=== PATIENT | female | born 1925 | race Caucasian/White ===

== ENCOUNTER 2016-07-09 16:16 | Observation (INO) ==
--- NOTE | 2016-07-09 16:28 | Emergency Department Note ---
Neuro HPI - General Chief Complaint: Stroke Symptoms Stated Complaint: right facial droop, speech difficulty Time Seen by Provider: 07/09/16 16:22 Mode of arrival: EMS - History of Present Illness HPI Narrative: Patient was last normal neurologically at 2:30. She then developed right-sided weakness and right facial droop and some speech difficulty that has all resolved over about an hour and 20 minutes. She has a history of atrial fibrillation but does not take any medications currently. Currently she appears to be in her normal baseline state. No history of stroke or TIA in the past Onset (ago): hour(s) Timing confirmed by: family member Location: speech, right face, right arm, right leg History of same: No Severity: moderate Quality: weak Improves with: time Worsens with: none Context: gradual onset On Anticoagulants: No Associated symptoms: Reports: denies other symptoms Treatments Prior to Arrival: none - Related Data Home Medications: Home Medications Medication Instructions Recorded Confirmed HYDROcodone/ACETAMINOPHEN [[place] 0.5 tab PO DAILY 07/09/16 07/09/16 Hd 10-325 mg Tablet] Previous Rx's Medication Instructions Recorded temazepam 30 mg capsule 30 mg PO QHS PRN #30 cap 07/03/16 Allergies/Adverse Reactions: Allergies Allergy/AdvReac Type Severity Reaction Status Date / Time No Known Drug Allergies Allergy Verified 05/29/16 10:52 Review of Systems All systems ED: reviewed and negative except as stated. Past Medical History - Past Medical History Medical history: Reports: asthma, COPD, hypertension, osteoporosis, thyroid disease, other (neuralgia. Muscular wasting and disuse atrophy. Insomnia. Herpes zoster.) Surgical history ED: Reports: hip replacement, other (repair of right rotator cuff. Amputation of finger.) - Social History Alcohol use: Reports: None Drug use: Reports: none Physical Exam - General Limitations: no limitations General appearance: alert, in no apparent distress - Head Head exam: atraumatic, normocephalic - Eye Eye exam: Present: normal appearance - ENT ENT exam: normal exam - Neck Neck exam: Present: normal inspection - Chest Chest inspection: Present: normal inspection - Respiratory Respiratory exam: Present: normal lung sounds bilaterally - Cardiovascular Cardiovascular exam: Present: regular rate, normal rhythm, normal heart sounds - Abdominal Exam Abdominal exam: Present: soft. Absent: distention, tenderness - Neurological Exam Neurological exam: Present: alert, oriented X3 - Expanded Neurological Exam Speech: Present: fluid speech Cranial nerves: facial sensation (V): Normal, facial palsy (VII): Normal Motor strength - LUE: 5/5 Motor strength - RUE: 5/5 Motor strength - LLE: 5/5 Motor strength - RLE: 5/5 - Psychiatric Psychiatric exam: Present: normal affect, normal mood - Skin Skin exam: Present: warm, dry, intact, normal color Course Vital Signs Temperature 97.8 F 07/09/16 16:17 Pulse Rate 76 07/09/16 16:17 Respiratory Rate 24 07/09/16 16:17 Blood Pressure 163/90 07/09/16 16:17 Pulse Oximetry (%) 100 07/09/16 16:17 Temperature 97.8 F 07/09/16 16:17 Pulse Rate 53 L 07/09/16 17:30 Respiratory Rate 14 07/09/16 17:30 Blood Pressure 163/90 07/09/16 16:17 Pulse Oximetry (%) 97 07/09/16 17:30 Neuro Symptoms/Deficit - MDM Narrative Medical decision making narrative: Patient's symptoms resolved after an hour and 20 minutes. She remained normal throughout the rest of her ER stay - Lab Data Lab results reviewed: Yes I reviewed the patient's lab results. Result diagrams: 07/09/16 16:30 07/09/16 16:30 Lab Results 07/09/16 07/09/16 07/09/16 Range/Units 16:30 16:30 16:30 WBC 5.5 (4.5-11.0) K/mcL RBC 4.56 (4.00-5.20) M/mcL Hgb 14.4 (12.0-15.0) g/dL Hct 43.4 (36.0-48.0) % POC Hct (36.0-48.0) % MCV 95.2 (80.0-100.0) fL MCH 31.7 (26.0-34.0) pg MCHC 33.3 (31.0-36.0) g/dL RDW 13.9 (11.5-14.5) % Plt Count 266 (140-440) K/mcL MPV 8.4 (7.4-10.4) fL Gran % 55.2 (38.0-78.0) % Lymph % (Auto) 32.5 (15.5-49.0) % [place] % (Auto) 10.1 (1.0-12.0) % Eos % (Auto) 1.7 (0.0-7.0) % Baso % (Auto) 0.5 (0.0-2.0) % Gran # 3.1 (1.8-8.0) K/mcL Lymph # 1.8 (1.5-4.8) K/mcL [place] # 0.6 (0.1-0.9) K/mcL Eos # 0.1 (0.0-0.7) K/mcL Baso # 0 (0.0-0.3) K/mcL POC PT 12.3 (11.9-14.5) sec PT 13.3 (11.9-14.5) sec POC INR 1.0 (0.9-1.2) INR 1.0 (0.9-1.1) APTT 31 (20-37) sec POC Sodium (133-145) mmol/L Sodium (133-145) mmol/L POC Potassium (3.3-5.1) mmol/L Potassium (3.3-5.1) mmol/L POC Chloride (96-108) mmol/L Chloride (96-108) mmol/L Carbon Dioxide (22-30) mmol/L POC Total CO2 (22-30) mmol/L Anion Gap (8-16) POC BUN (8-23) mg/dl BUN (8-23) mg/dl Creatinine (0.6-1.1) mg/dl POC Creatinine (0.6-1.1) mg/dl GFR Calculation Glucose (70-105) mg/dL POC Glucose (70-105) mg/dL Calcium (8.6-10.4) mg/dl POC WB Ioniz Calcium (1.16-1.32) mmol/L Total Bilirubin (0.0-1.0) mg/dL AST (0-37) U/l ALT (0-40) U/l Alkaline Phosphatase (39-117) U/L Total Protein (5.9-8.4) gm/dL Albumin (3.2-5.2) gm/dL Globulin (2.2-3.7) gm/dL Albumin/Globulin Ratio (1.0-2.3) 07/09/16 Range/Units 16:30 WBC (4.5-11.0) K/mcL RBC (4.00-5.20) M/mcL Hgb (12.0-15.0) g/dL Hct (36.0-48.0) % POC Hct 45.0 (36.0-48.0) % MCV (80.0-100.0) fL MCH (26.0-34.0) pg MCHC (31.0-36.0) g/dL RDW (11.5-14.5) % Plt Count (140-440) K/mcL MPV (7.4-10.4) fL Gran % (38.0-78.0) % Lymph % (Auto) (15.5-49.0) % [place] % (Auto) (1.0-12.0) % Eos % (Auto) (0.0-7.0) % Baso % (Auto) (0.0-2.0) % Gran # (1.8-8.0) K/mcL Lymph # (1.5-4.8) K/mcL [place] # (0.1-0.9) K/mcL Eos # (0.0-0.7) K/mcL Baso # (0.0-0.3) K/mcL POC PT (11.9-14.5) sec PT (11.9-14.5) sec POC INR (0.9-1.2) INR (0.9-1.1) APTT (20-37) sec POC Sodium 141 (133-145) mmol/L Sodium 138 (133-145) mmol/L POC Potassium 4.2 (3.3-5.1) mmol/L Potassium 4.3 (3.3-5.1) mmol/L POC Chloride 104 (96-108) mmol/L Chloride 102 (96-108) mmol/L Carbon Dioxide 24 (22-30) mmol/L POC Total CO2 25 (22-30) mmol/L Anion Gap 12.0 (8-16) POC BUN 25 H (8-23) mg/dl BUN 23 (8-23) mg/dl Creatinine 0.8 (0.6-1.1) mg/dl POC Creatinine 0.8 (0.6-1.1) mg/dl GFR Calculation 65 Glucose 110 H (70-105) mg/dL POC Glucose 110 H (70-105) mg/dL Calcium 9.3 (8.6-10.4) mg/dl POC WB Ioniz Calcium 1.13 L (1.16-1.32) mmol/L Total Bilirubin 0.2 (0.0-1.0) mg/dL AST 17 (0-37) U/l ALT 10 (0-40) U/l Alkaline Phosphatase 95 (39-117) U/L Total Protein 6.9 (5.9-8.4) gm/dL Albumin 4.0 (3.2-5.2) gm/dL Globulin 2.9 (2.2-3.7) gm/dL Albumin/Globulin Ratio 1.4 (1.0-2.3) - Radiology Data Radiology results reviewed: Yes I reviewed the patient's radiology results. (CT scan of head was negative) Disposition Clinical Impression: TIA (transient ischemic attack) Disposition: Xfer As Outpt/Obs ([facility]) Condition: Good Referrals: James Galarza MD [Primary Care Provider] - Time of Disposition: 17:46
[2016-07-09 17:08] LABS: Basophils # (Auto) 0 K/mcL (0.0-0.3); Basophils % (Auto) 0.5 % (0.0-2.0); Eosinophils # (Auto) 0.1 K/mcL (0.0-0.7); Eosinophils % (Auto) 1.7 % (0.0-7.0); Granulocytes % (Auto) 55.2 % (38.0-78.0); Lymphocytes # (Auto) 1.8 K/mcL (1.5-4.8); Lymphocytes % (Auto) 32.5 % (15.5-49.0); Mean Cell Volume 95.2 fL (80.0-100.0); Mean Corpuscular HGB Conc 33.3 g/dL (31.0-36.0); Mean Corpuscular Hemoglobin 31.7 pg (26.0-34.0); Monocytes # (Auto) 0.6 K/mcL (0.1-0.9); Monocytes % (Auto) 10.1 % (1.0-12.0); Platelet Count 266 K/mcL (140-440); RBC 4.56 M/mcL (4.00-5.20); Red Cell Distribution Width 13.9 % (11.5-14.5)
[2016-07-09 17:22] LABS: ALT/SGPT 10 U/l (0-40); Albumin/Globulin Ratio 1.4 (1.0-2.3); Alkaline Phosphatase 95 U/L (39-117); Blood Urea Nitrogen 23 mg/dl (8-23)
[2016-07-09] MEDS ORDERED: ASPIRIN 81 MG TAB.CHEW CHEWED ONE (17:45)
[2016-07-09] MEDS ORDERED: ATORVASTATIN 20 MG TABLET PO ONE (17:55)
[2016-07-09] MEDS ORDERED: IOPAMIDOL 100 ML BOTTLE IV ONE (18:31)
[2016-07-09] MEDS ORDERED: ACETAMINOPHEN 325 MG TABLET PO PRN (18:54)
[2016-07-09] MEDS ORDERED: guaiFENesin/CODEINE 10 ML UDC PO PRN (18:54)
[2016-07-09] MEDS ORDERED: ACETAMINOPHEN 1,000 MG/100 ML BOTTLE IV PRN (18:54)
[2016-07-09] MEDS ORDERED: traZODone HCL 50 MG TABLET PO PRN (18:54)
[2016-07-09] MEDS ORDERED: ONDANSETRON 4 MG/2 ML VIAL IV PRN (18:54)
--- NOTE | 2016-07-09 20:11 | Cat Scan Report ---
CLINICAL INFORMATION: Facial droop and speech difficulty. Question CVA COMPARISON: None. TECHNIQUE: 2.5 mm helical slices were obtained in the skull base to vertex. Following reconstruction, axial reformatted images were reviewed at bone and parenchymal windows. FINDINGS: The ventricles, sulci, fissures, and cisterns are symmetrically enlarged bowel with moderate age-related atrophy - there is no subdural hemorrhage or other extra-axial fluid collection or mass appreciated. Minimal chronic ischemic changes in the cerebral white matter is typical for age. No acute cerebral hemorrhage, mass effect, edema or other acute intracerebral abnormality. Bone windows show no osseous abnormality. IMPRESSION: Moderate atrophy and chronic ischemic changes in the deep cerebral white matter typical for age. No hemorrhage or other acute intracerebral finding. Interpreted and Authenticated by: Christos Greenwood 07/09/16
[2016-07-09] MEDS ORDERED: TEMAZEPAM 15 MG CAPSULE PO PRN (20:48)
[2016-07-09] MEDS ORDERED: SIMVASTATIN 40 MG TABLET PO SCH (21:00)
[2016-07-09] MEDS ORDERED: SENNOSIDES/DOCUSATE SODIUM 1 TAB TABLET PO SCH (21:00)
[2016-07-09] MEDS: 0.9 % SODIUM CHLORIDE 10 ML SYRINGE IV SCH (21:04)
[2016-07-09] MEDS: HEPARIN 5,000 UNIT/ML VIAL SQ SCH (21:06)
[2016-07-09] MEDS: DOCUSATE SODIUM 100 MG CAPSULE PO SCH (21:08)
--- NOTE | 2016-07-09 22:13 | History and Physical Report ---
DATE OF ADMISSION: 07/09/2016 DATE OF ADMISSION: 07/09/2016 REASON FOR ADMISSION: Speech difficulty, right-sided facial droop. HISTORY OF CHIEF COMPLAINT: and is an 89-year-old who presents to [facility] ER ith above symptom.. Sometime before noon patient experienced excruciating headache, followed by ight-sided weakness, difficulty speaking. She denied incontinence or seizure-like episode or loss of consciousness. She denied drooling. She denied vision changes or double vision, dysuria, chest palpitation, tearing neck pain. She got extremely concerned and called her son and subsequently came to [facility] ER. Initial workup iincluding head CT unremarkable. Her symptoms resolved within the first 80 minutes. Hospitalist Service was consulted and requested admission for evaluation of neuro symptoms, likely TIA. The patient received first dose of statin and aspirin after a negative head CT. At the time of examination, the patient is alert and oriented. She was able to provide most of the history. Her headache has resolved. She denied prior similar events, changes in medications. She further denies persistent numbness, incontinence, weakness or headache. REVIEW OF SYSTEMS: Ten-point review of system was performed; negative except the ones discussed above. PAST MEDICAL HISTORY: Significant for history of insomnia. CURRENT MEDICATIONS: Temazepam 30 mg. Hydrocodone/acetaminophen 0.5 tablet daily. ALLERGIES: NONE SIGNIFICANT. SOCIAL HISTORY: The patient lives fairly independently. She has a son who lives locally and checks twice a day. She denies smoking or alcoholism. CODE STATUS: NO CODE. FAMILY HISTORY: None relevant, given advanced age. PHYSICAL EXAMINATION: GENERAL EXAM: The patient is alert, oriented. Denies any active distress. VITAL SIGNS: Blood pressure 131/78, respiratory rate 16, temperature 97.5, pulse 50, saturations 97 percent on room air. HEENT: Pupils symmetric. Oral cavity dry. No ear or nose discharge. Head: Normocephalic, atraumatic. NECK: No lymphadenopathy. CHEST: S1, S2 regular rhythm. ESM grade 1. Diminished breath sounds at bases. ABDOMEN: Soft, nontender. LOWER EXTREMITY EXAMINATION: No cyanosis or clubbing. No joint swelling. SKIN: No suspicious lesions. PSYCHIATRIC: Alert and cooperative. No anxiety, agitation, or hallucination. NEURO EXAMINATION: Moving all 4 extremities. Normal cranial nerves. Normal higher function with registration, recall, speech, memory, orientation, judgment. Cerebellar signs negative. LABS AND IMAGING: CT head, noncontrast: No acute process except for chronic ischemic changes. EKG: Sinus rhythm, left axis deviation. White count 5.5, hemoglobin 14.4, platelets 266. INR 1. APTT 31. Sodium 141, potassium 4.2, creatinine 0.8, BUN 25. LFTs unremarkable. ASSESSMENT AND PLAN: An 89-year-old with transient ischemic attack, right-sided weakness. 1. Transient ischemic attack with right-sided weakness that resolved. ABCD score at ER 4, NIH score of 6. Current NIH score is zero. The patient will be admitted to observation telemetry with continued neuro checks, along with CT angiogram head and neck, along with MRI of brain and echocardiogram. The patient will undergo physical therapy, along with evaluation of liver profile. Continue aspirin and statin. 2. History of insomnia. Continue temazepam. PLAN FOR TODAY: 1. Admit as observation. 2. Telemetry monitoring. 3. Stroke workup as above. AA:shannon Job ID: [id number] Doc ID: [id number] Petr Nicole MD MTDD
[2016-07-10] MEDS: 0.9 % SODIUM CHLORIDE 10 ML SYRINGE IV SCH (05:33)
[2016-07-10 05:52] LABS: Mean Cell Volume 95.9 fL (80.0-100.0); Mean Corpuscular HGB Conc 33.6 g/dL (31.0-36.0); Mean Corpuscular Hemoglobin 32.3 pg (26.0-34.0); Platelet Count 225 K/mcL (140-440); RBC 4.23 M/mcL (4.00-5.20); Red Cell Distribution Width 14.3 % (11.5-14.5)
[2016-07-10 06:23] LABS: Basophils % (Manual) 3 % (0-2); Eosinophils % (Manual) 3 % (0-7); Lymphocytes % 36 % (15-49); Monocytes % (Manual) 9 % (1-12); Platelet Estimate NORMAL (NORMAL); RBC Morphology NORMAL (NORMAL); Segmented Neutrophils % 47 % (38-78)
[2016-07-10 06:29] LABS: ALT/SGPT 9 U/l (0-40); Albumin 3.6 gm/dL (3.2-5.2); Albumin/Globulin Ratio 1.4 (1.0-2.3); Alkaline Phosphatase 79 U/L (39-117); Bilirubin,Direct < 0.2 mg/dL (0.0-0.3); Blood Urea Nitrogen 17 mg/dl (8-23); Gamma Glutamyl Transpeptidase 24 U/L (5-36); HDL Cholesterol 67 mg/dl (>40); LDL Cholesterol,Calculated 90 mg/dl (SEE CHART); Magnesium 2.1 mg/dL (1.6-2.5); Uric Acid 4.6 mg/dL (2.5-8.0)
[2016-07-10] MEDS: HEPARIN 5,000 UNIT/ML VIAL SQ SCH (08:34)
[2016-07-10] MEDS: DOCUSATE SODIUM 100 MG CAPSULE PO SCH (08:34)
[2016-07-10] MEDS ORDERED: ASPIRIN 81 MG TAB.CHEW CHEWED SCH (09:00)
[2016-07-10] MEDS ORDERED: HYDROcodone/APAP 10/325MG TABLET PO SCH (09:00)
[2016-07-10] MEDS ORDERED: MULTIVIT,THER IRON,CA,FA & MIN 1 TABLET PO SCH (09:00)
[2016-07-10] MEDS ORDERED: ATORVASTATIN 20 MG TABLET PO SCH (09:00)
--- NOTE | 2016-07-10 09:44 | Cat Scan Report ---
ORIGINAL REPORT CLINICAL INFORMATION: TIA TECHNIQUE: 80 mL intravenous contrast material injected. Axial images through the neck and brain during arterial phase. Sagittally and coronally reformatted images. MIP reformatted images. COMPARISON: Noncontrast enhanced CT scan dated 07/09/2016 FINDINGS: Mild calcified atherosclerotic plaque in the aortic arch and at the origins of the great vessels. No stenosis. There is a separate origin of the left vertebral artery. This is a normal variant. No hemodynamically significant stenosis. Left vertebral artery is a small caliber vessel. Calcified plaque in the proximal internal carotid artery bilaterally. No soft plaque. No hemodynamically significant stenosis. No evidence for ulceration. Cervical internal carotid arteries are otherwise negative. Vertebral arteries are negative. No focal stenosis. Vertebral basilar junction is normal. Petrous, cavernous, supraclinoid segments of the internal carotid arteries are normal. M1 segments of the middle cerebral arteries and A1 segments of the anterior cerebral arteries are negative. Basilar artery is normal. No detectable intracranial abnormality. No occluded branch. Intracranial circulation appears normal. IMPRESSION: 1. Calcified atherosclerotic plaque in the proximal internal carotid artery bilaterally. No hemodynamically significant stenosis. No evidence for ulceration. 2. No intracranial abnormality. ADDENDUM #1 Lung apices are abnormal. There is centrilobular emphysema suggesting smoking history. Clinical correlation necessary. 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 No pathologic cervical lymphadenopathy. No solid or cystic soft tissue mass. Airway is negative. Parotid and submandibular glands are negative. Interpreted and Authenticated by: Christos Castillo 07/10/16
--- NOTE | 2016-07-10 10:36 | Magnetic Resonance Report ---
CLINICAL INFORMATION: TIA TECHNIQUE: Sagittal, axial, coronal images of the brain. Intravenous contrast material was not administered COMPARISON: Previous brain CT scan dated 07/09/2016 and CTA dated 07/10/2016 FINDINGS: No restricted diffusion. No acute infarction. No susceptibility. No hemorrhagic abnormality. T2 FLAIR sequences demonstrate scattered foci of increased signal intensity in the white matter of both hemispheres. Findings are predominantly subcortical. Appearance is consistent with small vessel ischemic change in this 89-year-old patient. No acute intra-axial signal abnormality. There is cerebral atrophy with prominent superficial subarachnoid spaces and ventricles. No evidence for acute hydrocephalus. No interstitial edema. Brainstem and cerebellum are negative. No extra-axial, intracranial abnormality. Normal flow void within vessels at the base of the brain. Paranasal sinuses and skull base are negative. IMPRESSION: 1. Age appropriate cerebral atrophy. White matter abnormality consistent with small vessel ischemic change. 2. No acute abnormality. No restricted diffusion. No evidence for acute infarction. Interpreted and Authenticated by: Christos Castillo 07/10/16
--- NOTE | 2016-07-10 12:47 | Discharge Summary ---
Medical - DS: Prov Patient information: Note initiated : 07/10/16 at 12:44 pm Service Date, if different from initiated Date: [] Patient: Francie Perez 89 y/o F admitted on 07/09/16 for Right Facial Droop, Speech Difficulty/TIA. Chief Complaint: [] Date of admission: 07/09/16 18:30 Discharge date: 07/10/16 Primary care physician: [f_Reg Prim Care Provider] Medical - DS: Meds - Discharge Medications Prescriptions: Aspirin 324 mg CHEWED DAILY #60 tab.chew Simvastatin [Zocor] 20 mg PO HS #30 tablet Active and Home Medications: Home Medications temazepam 30 mg capsule 30 mg PO QHS PRN #30 cap 07/03/16 [Rx Confirmed Last Taken 07/08/16] HYDROcodone/ACETAMINOPHEN [Lorcet Hd 10-325 mg Tablet] 0.5 tab PO DAILY [History Confirmed 07/09/16 Last Taken 07/07/16] Aspirin 324 mg CHEWED DAILY #60 tab.chew 07/10/16 [Rx Last Taken Unknown] Simvastatin [Zocor] 20 mg PO HS #30 tablet 07/10/16 [Rx Last Taken Unknown] Medical - DS: Hosp Hospital course: Discharge diagnosis * TIA- fully resolved. initial NIH score 4. continue aspirin and statin for long -term prophylaxis. Follow-up PCP in 5-7 days Brief hospital course Mr. Perez is a 89 year old female admitted with right-sided hemiparesis and mental status change with right facial droop. Negative head CT. Symptoms fully resolved within 80 minutes after initial NIH score of 4. Patient loaded on aspirin and statin. Extensive workup including noncontrast CT negative for hemorrhage. CT angiogram head and neck minimal atherosclerotic change involving the internal carotid arteries nonsignificant. MRI brain chronic microvascular ischemic age-related changes. Patient appears back to baseline and requesting discharge. Echocardiogram pending. Detailed discharge instructions as below. Continue aspirin and statin Discharge diagnosis: . - Time Spent with Patient Total time spent providing and/or coordinating discharge services: Greater than 30 minutes Medical - DS: Exam - Constitutional Vitals: Vital Signs Temp Pulse Pulse Resp BP BP BP 07/10/16 11:52 97.4 F L 20 128/65 07/10/16 10:54 69 07/10/16 08:00 98.4 F 67 16 111/76 05/08/17 03:50 97.8 F 55 L 16 121/60 07/09/16 23:16 97.3 F L 56 L 16 123/69 07/09/16 18:43 97.1 F L 53 L 16 171/78 07/09/16 18:36 97.8 F 52 L 13 163/90 Pulse Ox 07/10/16 11:52 99 07/10/16 10:54 07/10/16 08:00 95 07/10/16 03:50 96 07/09/16 23:16 97 07/09/16 18:43 97 07/09/16 18:36 87 L Intake and Output 07/09/16 07/10/16 07/10/16 21:59 05:59 13:59 Intake Total 100 / 100 Output Total 50 / 50 300 / 300 500 / 500 Balance -50 / -50 -200 / -200 -500 / -500 Intake: Oral 100 / 100 Output: Void Amount 50 / 50 300 / 300 500 / 500 Other: Meal Lunch Percent of Meal Consumed 100% Feeding Ability Assist with Tray Set Up # Voids 1 1 Weight 108 lb 8 oz Medical - DS: Data Labs on day of discharge: Labs from last 24 hours 07/10/16 07/10/16 05:00 05:00 WBC 4.2 L RBC 4.23 Hgb 13.7 Hct 40.6 MCV 95.9 MCH 32.3 MCHC 33.6 RDW 14.3 Plt Count 225 MPV 8.1 Total Counted 100 Seg Neutrophils % 47 Band Neutrophils % Not Reportable Lymphocytes % 36 Monocytes % (Manual) 9 Eosinophils % (Manual) 3 Basophils % (Manual) 3 H Reactive Lymphocytes 2 Platelet Estimate Normal RBC Morphology Normal Sodium 142 Potassium 4.4 Chloride 106 Carbon Dioxide 26 Anion Gap 10.0 BUN 17 Creatinine 0.7 GFR Calculation 77 Glucose 84 Uric Acid 4.6 Calcium 9.0 Phosphorus 3.3 Magnesium 2.1 Total Bilirubin 0.4 Direct Bilirubin < 0.2 GGT 24 AST 17 ALT 9 Alkaline Phosphatase 79 Lactate Dehydrogenase 172 Total Protein 6.1 Albumin 3.6 Globulin 2.5 Albumin/Globulin Ratio 1.4 Triglycerides 60 Cholesterol 168 LDL Cholesterol, Calc 90 Non-HDL Cholesterol 101 HDL Cholesterol 67 Medical - DS: A/P - Patient/Caregiver Discharge Instructions Activity: increase activity as tolerated Diet: Regular Diet Additional Instructions: continue aspirin and statin as advised follow up PCP in 5-7 days Return to ER if worsening neurological changes and difficulty speech swallowing , seizures. Prescriptions: Aspirin 324 mg CHEWED DAILY #60 tab.chew Simvastatin [Zocor] 20 mg PO HS #30 tablet - Follow up Plan Follow up with: James Galarza MD [Primary Care Provider] - Disposition: Home, Self-Care Prognosis: Good Rehab Potential: Fair I certify that the patient requires SNF services: No Overall status at discharge: patient is progressing back to baseline Medical - DS: Qual - VTE Deep Vein Thrombosis/Pulmonary Embolism Present on Admission: No
--- NOTE | 2016-07-11 07:46 | Echocardiogram Report ---
ECHOCARDIOGRAM: 2-D and M-mode echocardiography with cardiac Doppler and color flow imaging were performed with a [employer] Aplio MX. Indication is TIA. Overall size of the four cardiac chambers and aortic root appeared normal as did LV wall thickness and systolic performance. Estimated ejection fraction is 65%-70%. The aortic root appeared sclerotic. The aortic valve appeared trileaflet and normal for age. There was no evidence for aortic stenosis or aortic regurgitation by Doppler interrogation. The mitral and tricuspid valves appeared unremarkable. Prominent mitral chordal calcification was noted. Doppler interrogation of LV inflow disclosed prolonged early diastolic deceleration time and ''a'' wave dominance indicating delayed LV relaxation. Mitral regurgitation, probably mild (1+), was noted. Pulmonary venous interrogation disclosed normal ''s'' wave dominance. The pulmonic valve was not visualized. Pulmonary artery acceleration time appeared normal. There was no evidence for pulmonic stenosis or pulmonic regurgitation. Tricuspid regurgitation, probably mild (1+), was demonstrated. There was no evidence for pericardial effusion. The IVC was of normal diameter and showed normal respiratory variation. Sinus rhythm, rate 62, was present. CONCLUSION:Aortic root sclerosis. Prominent mitral chordal calcification with mitral regurgitation probably mild (1+). (See accompanying M-mode and Doppler reports for quantitation.) ECHOCARDIOGRAPHY M-MODE CALCULATIONS: HT: 66'' WT: 108 BSA: 1.54 m2 NORMALS AORTA: AORTIC ROOT 2.8 2.0-3.7 cm LEFT ATRIUM 2.5 1.9-4.0 cm MITRAL VALVE: EXCURSION 1.4 1.9-2.7 cm EPSS 0 <0.5 cm LT VENTRICLE: LVID (ED) 3.4 3.5-5.7 cm LVID (ES) 1.7 SEPTAL THICKNESS 1.1 0.6-1.1 cm SEPTAL EXCURSION 0.6 0.3-0.8 cm LVPW THICKNESS 1.1 0.6-1.1 cm LVPW EXCURSION 0.9 0.9-1.4 cm MINOR AXIS FS 5.0 25%-40% RT VENTRICLE: RVID (ED) 1.5 0.9-2.6 cm(up to 3cm if LLD) QUALITATIVE DOPPLER FLOW STUDIES MITRAL VALVE MR, probably mild (1+) AORTIC VALVE -- TRICUSPID VALVE TR, probably mild (1+) PULMONIC VALVE -- QUANTITATIVE DOPPLER FLOW STUDIES SAMPLE SITES VELOCITIES PEAK PRESSURE VALVE AREA and/or VALVE WINDOW (PEAK,M/SEC) DROP (GRADIENT) PRESSURE HALF-TIME MV (Diastole) 0.9 1.1 -- -- MV (Systole) 3.5 -- -- AO (Diastole) -- -- -- AO (Systole) 1.1 -- -- TV (Systole) 2.3 -- -- PV (Systole) 0.6 -- -- PV (Diastole) -- LWChina:ave Job ID: [id number] Doc ID: [id number] Yovanny Ramirez MD
== END 2016-07-10 13:55 | disposition home or self-care (01) ==
LOC: ICU 16:16 → ED 16:16 → ICU 18:36
PROVIDERS: ADMIT Internal Medicine; ATTEND Internal Medicine